=== PATIENT | male | born 1985 | race Caucasian/White ===

== ENCOUNTER 2019-09-25 09:38 | Outpatient (CLI) | payer OTHER, SELFPAY ==
--- NOTE | 2019-09-25 11:00 | NEURO_ITS ---
Patient Number: [id number] Impression: # Complains of numbness of left more than right hand. # Mild left Carpal Tunnel Syndrome. # No ulnar neuropathy. # Normal needle/EMG exam. Nerve Conduction Studies Anti Sensory Summary Table Stim Site NR Peak (ms) P-T Amp (?V) Site1 Site2 Delta-P (ms) Dist (cm) Pankaj (m/s) Left Median Anti Sensory (2-3nd Digit) Wrist 3.0 85.8 Wrist 2-3nd Digit 3.0 14.0 47 Wrist 2.9 73.8 Wrist 2-3nd Digit 3.0 14.0 47 Right Median Anti Sensory (2-3nd Digit) Wrist 2.8 87.2 Wrist 2-3nd Digit 2.8 14.0 50 Wrist 2.6 68.8 Wrist 2-3nd Digit 2.8 14.0 50 Left Radial Anti Sensory (Base 1st Digit) Wrist 2.2 18.2 Wrist Base 1st Digit 2.2 0.0 Right Radial Anti Sensory (Base 1st Digit) Wrist 2.0 15.6 Wrist Base 1st Digit 2.0 0.0 Left Ulnar Anti Sensory (5th Digit) Wrist 2.4 44.1 Wrist 5th Digit 2.4 14.0 58 Right Ulnar Anti Sensory (5th Digit) Wrist 2.2 83.0 Wrist 5th Digit 2.2 14.0 64 Motor Summary Table Stim Site NR Onset (ms) O-P Amp (mV) Site1 Site2 Delta-0 (ms) Dist (cm) Pankaj (m/s) Left Median Motor (Abd Poll Brev) Wrist 3.8 5.5 Elbow Wrist 4.4 26.0 59 Elbow 8.2 2.8 Right Median Motor (Abd Poll Brev) Wrist 3.4 3.4 Elbow Wrist 4.0 25.0 63 Elbow 7.4 3.1 Left Ulnar Motor (Abd Dig Minimi) Wrist 2.2 5.8 A Elbow Wrist 4.7 29.0 62 A Elbow 6.9 4.8 Right Ulnar Motor (Abd Dig Minimi) Wrist 2.5 3.9 A Elbow Wrist 4.4 27.0 61 A Elbow 6.9 3.3 F Wave Studies NR F-Lat (ms) L-R F-Lat (ms) Left Median (Mrkrs) (Abd Poll Brev) 29.04 0.83 Right Median (Mrkrs) (Abd Poll Brev) 28.20 0.83 Left Ulnar (Mrkrs) (Abd Dig Min) 28.28 0.92 Right Ulnar (Mrkrs) (Abd Dig Min) 29.21 0.92 EMG Side Muscle Nerve Root Ins Act Fibs Amp Dur Recrt Comment Right 1stDorInt Ulnar C8-T1 Nml Nml Nml Nml Nml Right Ext Indicis Radial (Post Int) C7-8 Nml Nml Nml Nml Nml Right Ext Digitorum Radial (Post Int) C7-8 Nml Nml Nml Nml Nml Right BrachioRad Radial C5-6 Nml Nml Nml Nml Nml Right PronatorTeres Median C6-7 Nml Nml Nml Nml Nml Right Abd Poll Brev Median C8-T1 Nml Nml Nml Nml Nml Left 1stDorInt Ulnar C8-T1 Nml Nml Nml Nml Nml Left Ext Indicis Radial (Post Int) C7-8 Nml Nml Nml Nml Nml Left Ext Digitorum Radial (Post Int) C7-8 Nml Nml Nml Nml Nml Left BrachioRad Radial C5-6 Nml Nml Nml Nml Nml Left PronatorTeres Median C6-7 Nml Nml Nml Nml Nml Left Abd Poll Brev Median C8-T1 Nml Nml Nml Nml Nml MTDD
== END 2019-09-25 09:39 | disposition home or self-care (01) ==
PROVIDERS: PCP Physician Assistant; Visit Provider Physician Assistant
DX: M25.539 Pain in unspecified wrist (principal); G56.02 Carpal tunnel syndrome, left upper limb
CPT/HCPCS: 95886; 95911

== ENCOUNTER 2020-05-07 19:19 | Emergency (ER) | payer OTHER, SELFPAY ==
--- NOTE | ~2020-05-07 | XR_ITS ---
XR ankle LT min 3V 05/07/2020 19:51 Indication: Left ankle pain Procedure: 4 views left ankle Comparison: No prior studies for comparison. Findings: There is a comminuted mildly displaced distal fibular diaphyseal fracture. There is a displ aced medial malleolar fracture with widening of the medial ankle mortise. Moderate medial soft tissue swelling. Talar dome is unremarkable. Impression: 1: Mildly displaced fractures of the distal fibular diaphysis and medial malleolus with widening of t he medial ankle mortise. Reviewed, dictated and finalized at location A. CATION COORDINATOR Impression: 1: Mildly displaced fractures of the distal fibular diaphysis and medial malleo tashia with widening of the medial ankle mortise.
--- NOTE | ~2020-05-07 | XR_ITS ---
XR tibia fibula LT 2V 05/07/2020 20:11 Indication: Left leg pain after wrestling injury Procedure: 2 views left tibia/fibula Comparison: Left ankle series dated 05/07/2020 Findings: There are fractures of the distal fibula and medial malleolus as described on prior ankle s eries. No other fractures identified. Moderate soft tissue swelling medially at the ankle. Impression: 1: Displaced distal fibular and medial malleolar fractures as described on left ankle series study. Reviewed, dictated and finalized at location A. ATCHER TUGBOAT Impression: 1: Displaced distal fibular and medial malleolar fractures as described on left ankle series study.
[2020-05-07 19:22] VITALS: BP 133/77; PULSE 80; RESP 20; TEMP 36.1; O2SAT 98
--- NOTE | 2020-05-07 19:39 | ED.LOWEXIN ---
HPI - Extremity Injury (Lower) General Chief Complaint: Extremity Injury, Lower Stated Complaint: left foot/ankle injury Time Seen by Provider: 05/07/20 19:32 Source: patient Mode of arrival: wheelchair Limitations: no limitations History of Present Illness HPI Narrative: This is a 34-year-old male that presents the emergency department for left ankle injury sustained just prior to arrival. Reports he was wrestling with his cousins and felt a snap in the left ankle. Reports swelling and decreased range of motion due to pain. Denies numbness. Related Data Home Medications Medication Instructions Recorded Confirmed cetirizine 10 mg PO DAILY 05/02/19 05/14/19 omeprazole 20 mg PO BID 05/02/19 05/14/19 sucralfate 1 g PO TID 05/02/19 05/14/19 Allergies Allergy/AdvReac Type Severity Reaction Status Date / Time No Known Allergies Allergy Verified 05/07/20 19:25 Review of Systems Review of Systems: Narrative: CONSTITUTIONAL: Denies fever MUSCULOSKELETAL: Reports joint pain, and myalgia. NEUROLOGIC: Denies numbness All systems reviewed & are unremarkable except as noted in HPI and below PMFSH Past Medical History Medical History (Updated 05/07/20 @ 20:43 by Maria A Hernandez PA-C) Anxiety GERD (gastroesophageal reflux disease) LORI (obstructive sleep apnea) CPAP Family History Family History (System 04/17/19 @ 15:53 by Oneida Velasquez) Father Diabetes mellitus Mother COPD (chronic obstructive pulmonary disease) Social History Social History (System 04/17/19 @ 15:53 by Oneida Velasquez) Gender identity (if verbalized by the patient): Male Sexual Orientation (if Verbalized by the Patient): Straight or Heterosexual Exam Narrative: Exam Narrative: GENERAL: Well-appearing, well-nourished, and in no acute distress. HEAD: Normocephalic, atraumatic. EYES: EOMI. EXTREMITIES: Normal range of motion. Mild to moderate edema about the left medial malleoli. Normal DP pulses. Normal sensation SKIN: Warm, dry, no rash. NEURO: No focal deficits. Alert and oriented x3. PSYCH: Normal mood and affect Course Consultations Consultation #1: Spoke with Dr. Wayne about patient and work-up will follow-up in clinic. Date: 05/07/20 Time: 20:48 Vital Signs Vital signs: Vital Signs Temperature 97.0 F L 05/07/20 19:22 Pulse Rate 80 05/07/20 19:22 Respiratory Rate 20 05/07/20 19:22 Blood Pressure 133/77 05/07/20 19:22 Pulse Oximetry 98 05/07/20 19:22 Temperature 97.0 F L 05/07/20 19:22 Pulse Rate 80 05/07/20 19:22 Respiratory Rate 20 05/07/20 19:22 Blood Pressure 133/77 05/07/20 19:22 Pulse Oximetry 98 05/07/20 19:22 MDM - Extremity Injury (Lower) MDM Narrative Medical decision making narrative: Patient presents emergency department for left ankle injury sustained just prior to arrival. He is neurovascularly intact. Left ankle x-ray shows a mildly displaced fractures of the distal fibular diaphysis and medial malleolus with widening of the medial ankle mortise. Patient placed in a splint. Spoke with Dr. Wayne about patient and work-up will follow-up in clinic. Patient was given warnings to return to the ER Imaging Data Radiologist's impression: ITS Impressions Ankle X-Ray 05/07/20 19:53 Impression: 1: Mildly displaced fractures of the distal fibular diaphysis and medial malleolus with widening of the medial ankle mortise. Tibia/Fibula X-Ray 05/07/20 20:12 Impression: 1: Displaced distal fibular and medial malleolar fractures as described on left ankle series study. Critical Care Time Critical Care Time Critical Care Time: No Discharge Plan Discharge Clinical Impression: Closed fracture of distal end of left fibula Qualifiers: Encounter type: initial encounter Fracture morphology: unspecified fracture morphology Qualified Code(s): S82.832A - Other fracture of upper and lower end of left fibula, initial encounter for closed
[2020-05-07] MEDS: HYDROcodone/acetaminophen (*CRX) 5-325 MG TABLET 1 TAB PO (21:00)
[2020-05-07 22:05] VITALS: BP 120/76; PULSE 75; RESP 18; O2SAT 97
--- NOTE | 2020-05-23 02:14 | PC.NURSE ---
LATE ENTRY This note is being entered to document information to the patient's record. The following information was omitted on [05/23/2020], by [Addie Wood].Splint applied to Left leg by java tech lead.
== END 2020-05-07 22:07 | disposition home or self-care (01) ==
PROVIDERS: Emergency Provider Emergency Medicine; PCP Physician Assistant
DX: S82.52XA Displaced fracture of medial malleolus of left tibia, initial encounter for closed fracture (principal); S89.392A Other physeal fracture of lower end of left fibula, initial encounter for closed fracture; F41.9 Anxiety disorder, unspecified; K21.9 Gastro-esophageal reflux disease without esophagitis; G47.33 Obstructive sleep apnea (adult) (pediatric); X58.XXXA Exposure to other specified factors, initial encounter; Y93.83 Activity, rough housing and horseplay
CPT/HCPCS: 29515; 73590; 73610; 99284; A9270

== ENCOUNTER 2020-05-12 00:35 | Day surgery (SDC) | payer OTHER, SELFPAY ==
[2020-05-11 11:12] VITALS: BMI 27.7
--- NOTE | 2020-05-11 12:58 | WPDANESEPPF ---
Anes - Initial Pre Proc Eval Procedure: Operation Date: 05/12/20 14:30 Proposed Procedures p Open Reduction Internal Fixation Left Bimalleolar Ankle Fracture, Left Tibia Fibula Syndesmosis - Reinaldo Wayne MD Date/Time: 05/11/20 12:58 Surgeon: Reinaldo Wayne MD Pre Op Diagnosis: Bimalleolar Left Ankel Fracture,Left Distal Tib/fi Patient Data Age: 34 Gender: M Height: 1.68 m Weight: 78.02 kg Allergies Allergy/AdvReac Type Severity Reaction Status Date / Time No Known Allergies Allergy Verified 05/11/20 11:01 Home Medications Medication Instructions Recorded Confirmed Type omeprazole 20 mg PO BID 05/02/19 05/12/20 History hydrocodone-acetaminophen 1 tablet PO Q8H PRN #20 tablet 05/07/20 05/12/20 Rx ibuprofen 600 mg PO Q6H PRN 05/11/20 05/12/20 History Patient hx anesthesia problems: none Family hx anesthesia problems: none PMFSH Past Medical History Medical History Anxiety GERD (gastroesophageal reflux disease) LORI (obstructive sleep apnea) CPAP Family History Family History Father Diabetes mellitus Mother COPD (chronic obstructive pulmonary disease) Social History Social History Smoking status: Never smoker Substance use: current Substance use type: marijuana Last use: 05/11/20 Living arrangements: with family Gender identity (if verbalized by the patient): Male Spiritual care concerns: No Anes - Eval Final PreProcedure Day of Procedure 05/11/20 12:58 Patient weight: overweight Heart: regular rate and rhythm Lungs: clear to auscultation and normal air movement Airway: Mallampati scale class II Neurological: alert and oriented Last oral intake: >/= 8 hours ASA classification: III Emergent: no Anesthetic plan: proceed Anesthesia type and monitoring: general LMA and standard monitoring Informed Consent: The patient's anesthetic plan and its attendant risks and benefits were discussed with the patient/family/POA. Questions were solicited and answers provided to the satisfaction of the patient/family/POA.
[2020-05-12] VITALS (8 sets, daily range): BP systolic 120–145; BP diastolic 66–94; PULSE 57–88; RESP 12–20; TEMP 36.3–36.7; O2SAT 95–99
--- NOTE | ~2020-05-12 | XR_ITS ---
EXAMINATION: XR surgery orthopedic INDICATION: Open reduction and internal fixation of a bimalleolar left ankle fracture. TECHNIQUE: Six intraoperative fluoroscopic images are submitted for review. Total fluoroscopic time i s 93.9 seconds. COMPARISON: 05/07/2020 FINDINGS: Fluoroscopic images demonstrate reduction and internal fixation of the previously described bimalleolar fracture. Alignment is anatomic. Please refer to procedure note for full details. IMPRESSION: 1. Please refer to procedure note for full details. Reviewed, dictated and finalized at location A. OPSYCHIATRIST
[2020-05-12] MEDS: ACETAMINOPHEN 500 MG TABLET 1000 MG PO (13:15)
[2020-05-12] MEDS: LACTATED RINGERS 1,000 ML 30 ML IV CONT ×2 (13:15→17:06)
[2020-05-12] MEDS: KETOROLAC 15 MG/ML VIAL (*BKC) IV PUSH (13:24)
--- NOTE | 2020-05-12 14:00 | WPDANESPNB ---
Anes - Peripheral Nerve Block Date/Time: 05/12/20 14:00 I have discussed with the patient/family/POA the placement of a peripheral nerve block for post-operative pain management, including associated risks, benefits, complications, and side effects. Alternative methods of post-operative analgesia were detailed. Questions were solicited and answers provided to the satisfaction of the patient/family/POA. Time-Out: A pre-procedural Time-Out was completed immediately before starting the procedure and confirmed: Patient Identification, Site, Procedure, Patient Position and the Availability of Requisite Equipment. Clinical Indications: Acute post-operative pain management requested by the operative surgeon. Nerve Block Insertion Note Anes-nerve block: posterior fossa sciatic left and adductor canal left Patient position: supine (for adductor canal) and other (right lateral for popliteal) Skin prep: chlorhexidine Needle: 22 gauge, stimulating, insulated echogenic needle. Needle length: 80 mm Technique: nerve stimulation lost at (mA) (for popliteal lost at 0.2) and ultrasound Injectate: bupivacaine 0.5% with epi 5 mcg/ml (20 mL for popliteal, 10 mL for adductor canal) Observations: tolerated well Complications: none Procedure start time:: 1412 Procedure end time:: 1420
--- NOTE | 2020-05-12 15:04 | WPDHPUPDATE1 ---
History and Physical Update Update Date/Time: 05/12/20 15:04 History and Physical has been reviewed, including an updated exam of the patient. There are NO changes in the patient's condition. Risks, benefits, and alternatives have been discussed and questions answered. Patient agrees to proceed with procedure.
[2020-05-12] MEDS: ceFAZolin 2 GM/D5W 50 ML 2 GM/50 ML BAG IVPB (15:15)
--- NOTE | 2020-05-12 17:22 | P.OP_ITS ---
Procedure Note - Detailed Date of procedure: 05/12/20 Bimalleolar displaced ankle fracture with tibia-fibula syndesmosis disruption. Post-op diagnosis: same Procedure performed: 1. ORIF bimalleolar ankle fracture 2. ORIF tib-fib syndesmosis Implants: Arthrex 1/3 tubular plate. 4.0 mm partially threaded cannulated screws, 42mm x 2. Tight rope button fixation. [facility] Surgeon: Reinaldo Wayne MD Director Of Sports Medicine: Matilde Hawk PA-C Estimated blood loss (mL): 20 Drains: No Complications: None Findings: Physician executive assistant to general counsel, Matilde Hawk PA-C, required for surgery; including patient positioning, draping, tissue retraction, maintaining instrument position and fracture reduction, wound closure, and dressing placement. A general anesthetic was administered. The limb was prepped and draped in the usual sterile fashion with a well-padded tourniquet high on the thigh. A bump was placed under the hip. The limb was exsanguinated and the tourniquet inflated to 300 millimeters of mercury during the procedure. A longitudinal incision was created at the distal fibula. Careful dissection was carried down to bone. Perineal nerve branches were protected. The fracture was carefully exposed. Callus and debris was irrigated from the wound. The fracture was brought out to length. Reduction was accomplished with the reduction forceps. The fixation plate was contoured. Fixation was performed with a combination of cortical and cancellous screws. Fluoroscopy was used throughout the procedure to confirm anatomic reduction and appropriate placement of the implants. The medial malleolus was exposed with a longitudinal incision. The fracture was cleared of debris and irrigated. Anatomic reduction was obtained with the reduction tool. Biplanar fluoroscopy was used to assess the fracture reduction and guide placement of the K-wire. Two K-wires were placed parallel across the fracture site. The screw lengths were measured and drilled distally only. The long, partially threaded screws were placed, and the K-wires removed. The syndesmosis was confirmed to be on stable. A tight rope was passed from the fibula through the plate into the tibia. Button was deployed successfully and the suture carefully and sequentially secured. The gap at the syndesmosis was closed with gentle manual pressure. Stability confirmed with dynamic fluoroscopic views. The tourniquet was released. Meticulous hemostasis was obtained. Wound was closed in layers with 2-0 Vicryl suture 3-0 Monocryl suture and kip. A sterile splint with padding was applied. The patient was extubated and brought to the recovery room in stable condition. There were no complications.
--- NOTE | 2020-05-12 17:51 | SUR.PHASEI ---
PT AWAKE. DENIES PAIN OR NAUSEA. STATES HE IS THIRSTY. READY TO SIT IN RECLINER.
== END 2020-05-12 18:50 | disposition home or self-care (01) ==
PROVIDERS: PCP Physician Assistant; Visit Provider Orthopaedic Surgery
PROC: (CPT 27814; principal; 2020-05-12 14:30)
DX: S82.842A Displaced bimalleolar fracture of left lower leg, initial encounter for closed fracture (principal); S93.432A Sprain of tibiofibular ligament of left ankle, initial encounter; G89.18 Other acute postprocedural pain; K21.9 Gastro-esophageal reflux disease without esophagitis; G47.33 Obstructive sleep apnea (adult) (pediatric); F41.9 Anxiety disorder, unspecified; F12.90 Cannabis use, unspecified, uncomplicated; X50.0XXA Overexertion from strenuous movement or load, initial encounter; Y93.72 Activity, wrestling
CPT/HCPCS: 27814; 27829; 64445; 64447; A9270; C1713; C1769; J0690; J1100; J1885; J2250; J2405; J2704; J3010; J7120